=== PATIENT | female | born 1960 | race Caucasian/White ===

== ENCOUNTER 2016-08-18 06:53 | Outpatient (CLI) | payer OTHER | END 2016-08-18 06:54 | disposition home or self-care (01) | DX: E78.5 Hyperlipidemia, unspecified (principal); Z13.1 Encounter for screening for diabetes mellitus; R73.01 Impaired fasting glucose ==

== ENCOUNTER 2016-09-06 15:05 | Outpatient (CLI) | payer OTHER | END 2016-09-06 15:06 | disposition home or self-care (01) | DX: E80.6 Other disorders of bilirubin metabolism (principal) ==

== ENCOUNTER 2017-10-05 15:37 | Outpatient (CLI) | payer OTHER ==
--- NOTE | 2017-10-10 12:49 | Mammography Report ---
DIGITAL SCREENING MAMMOGRAM: 10/05/2017 CLINICAL INDICATION: A 57-year-old nulliparous the patient for screening. COMPARISON: 04/2016, 08/2014, 04/2012, 12/2010, 08/2009. TECHNIQUE: Routine CC and MLO projections as well as bilateral laterally exaggerated craniocaudal views were obtained of the breasts. FINDINGS: The breasts again demonstrate heterogeneously dense fibroglandular parenchyma bilaterally. Coarse, typically benign calcifications are present. No suspicious masses, clustered microcalcifications, or regions of architectural distortion are identified. IMPRESSION: BENIGN FINDINGS. RECOMMENDATION: Routine annual screening unless otherwise clinically indicated. BI-RADS CATEGORY 2 - BENIGN FINDINGS. STANDARD QUALIFYING STATEMENTS: 1. This examination was reviewed with the aid of Computer-Aided Detection (CAD). 2. A negative or benign imaging report should not delay biopsy if clinically suspicious findings are present. Consider surgical consultation if warranted. More than 5% of cancers are not identified by imaging. 3. Dense breasts may obscure an underlying neoplasm. TD: 10/10/2017 12:23
== END 2017-10-05 15:38 | disposition home or self-care (01) ==
LOC: DI 15:37
PROVIDERS: ATTEND Physician Assistant
DX: Z12.31 Encounter for screening mammogram for malignant neoplasm of breast (principal)
CPT/HCPCS: 77067

== ENCOUNTER 2017-11-21 15:50 | Outpatient (CLI) | payer OTHER ==
--- NOTE | 2017-11-22 11:05 | XRAY Report ---
Procedure Date: 11/21/2017 Accession Number: [id number] / [id number] Procedure: XR - Cervical Spine 2 View CPT Code: FULL RESULT: EXAM: Cervical Spine 2 View DATE: 11/21/2017 4:17 PM CLINICAL HISTORY: SCOLIOSIS COMPARISON: None. TECHNIQUE: 3 views. FINDINGS: Alignment: Normal. No spondylolisthesis or scoliosis. Bones: The cervical vertebral bodies and posterior elements are well visualized from the skull base through C7-T1. No fractures or bone lesions. Disks: Moderate degenerative disc disease, with disc space narrowing worst at C5-6. Facets: Moderate facet arthropathy. Soft Tissues: Normal. No prevertebral soft tissue swelling. The visualized lung apices are clear. IMPRESSION: Moderate degenerative changes. No evidence of acute fracture. RADIA
--- NOTE | 2017-11-22 11:16 | XRAY Report ---
Procedure Date: 11/21/2017 Accession Number: [id number] / [id number] Procedure: XR - Thoracic Spine 2 View CPT Code: FULL RESULT: EXAM: Thoracic Spine 2 View DATE: 11/21/2017 4:17 PM CLINICAL HISTORY: PAIN,DORSALGIA, UNSPECIFIED,OTH SYMPTOMS AND SIGNS COMPARISON: None. TECHNIQUE: 2 views. FINDINGS: Alignment: Dextroscoliosis of the lower thoracic spine, measuring 30 degrees between the pedicles of T11 and T7. Bones: No fractures or bone lesions. Disks: Degenerative disc disease, increased. Soft Tissues: Normal. The visualized lungs and cardiomediastinal silhouette are normal. IMPRESSION: Progression of degenerative disc disease and scoliosis. RADIA
--- NOTE | 2017-11-22 11:18 | XRAY Report ---
Procedure Date: 11/21/2017 Accession Number: [id number] / [id number] Procedure: XR - Lumbar Spine 2 View CPT Code: FULL RESULT: EXAM: Lumbar Spine 2 View DATE: 11/21/2017 4:17 PM CLINICAL HISTORY: PAIN,DORSALGIA, UNSPECIFIED,OTH SYMPTOMS AND SIGNS COMPARISON: 05/21/2007 TECHNIQUE: 2 views. FINDINGS: Alignment: Levoscoliosis, measuring 64 degrees between the pedicles of T11 and L3. Increased lateral subluxation of L3 on L4. Bones: Five hnp-hna-ldmarih lumbar vertebral bodies are present. No fractures or bone lesions. Disks: Progression of degenerative disc disease. Facets: Moderate facet arthropathy. Sacroiliac Joints: Unremarkable. Soft Tissues: Normal. The visualized bowel gas pattern is normal. IMPRESSION: Progression of scoliosis and degenerative changes. RADIA
== END 2017-11-21 15:51 | disposition home or self-care (01) ==
LOC: DI 15:50
PROVIDERS: ATTEND Physician Assistant
DX: M50.322 Other cervical disc degeneration at C5-C6 level (principal); M47.892 Other spondylosis, cervical region; M51.34 Other intervertebral disc degeneration, thoracic region; M41.84 Other forms of scoliosis, thoracic region; M51.36 Other intervertebral disc degeneration, lumbar region; M47.896 Other spondylosis, lumbar region; M43.16 Spondylolisthesis, lumbar region
CPT/HCPCS: 72040; 72070; 72100

== ENCOUNTER 2019-11-28 08:45 | Outpatient (CLI) | payer BC ==
--- NOTE | 2019-12-02 13:25 | Mammography Report ---
BILATERAL DIGITAL SCREENING MAMMOGRAM 3D/2D: 11/28/2019 CLINICAL: Routine screening. Comparison is made to exams dated: 10/05/2017 mammogram, 05/26/2016 mammogram, and 09/05/2014 mammogra m - [facility]. The tissue of both breasts is heterogeneously dense. This may lowe r the sensitivity of mammography. No significant masses, calcifications, or other findings are seen in either breast. There has been no significant interval change. IMPRESSION: NEGATIVE There is no mammographic evidence of malignancy. A 1 year screening mammogram is recommended. This exam was interpreted at Station ID: [id number]. NOTE: For mammograms, a report in lay terms will be sent to the patient. Approximately 15% of breast malignancies will not be visualized mammographically. In the management of a palpable breast mass, a negative mammogram must not discourage biopsy of a clinically suspicious lesion. Electronically Signed By: Migel Joseph M.D. slc/penrad:11/28/2019 18:20:17 ACR BI-RADS Category 1: Negative 3341F PARENCHYMAL PATTERN: (D) - The breast(s) demonstrate(s) heterogeneously dense fibroglandular leidy marie. BI-RADS CATEGORY: (1) - 1 RECOMMENDATION: (ANNUAL) - Recommend routine annual screening mammography. [id number] 1 year screening LATERALITY: (B)
== END 2019-11-28 08:46 | disposition home or self-care (01) ==
LOC: DI 08:45
DX: Z12.31 Encounter for screening mammogram for malignant neoplasm of breast (principal)
CPT/HCPCS: 77063; 77067

== ENCOUNTER 2020-04-30 07:55 | Outpatient (CLI) | payer BC ==
[2020-04-30 08:21] LABS: BASOPHILS # (AUTO) 0.1 10^3/uL (0.0-0.1); BASOPHILS % (AUTO) 0.9 %; EOSINOPHILS # (AUTO) 0.1 10^3/uL (0.0-0.7); EOSINOPHILS % (AUTO) 2.4 %; LYMPHOCYTES # (AUTO) 1.8 10^3/uL (1.5-3.5); LYMPHOCYTES % (AUTO) 33.6 %; MEAN CORPUSCULAR HEMOGLOBIN 31.9 pg (27.0-31.0); MEAN CORPUSCULAR HGB CONC 33.3 g/dL (32.0-36.0); MEAN CORPUSCULAR VOLUME 95.9 fL (81.0-99.0); MEAN PLATELET VOLUME 9.7 fL (7.9-10.8); MONOCYTES # (AUTO) 0.4 10^3/uL (0.0-1.0); MONOCYTES % (AUTO) 7.3 %; NEUTROPHILS % (AUTO) 55.4 %; PLT - PLATELET COUNT 283 10^3/uL (130-450); RED BLOOD COUNT 4.39 10^6/uL (4.20-5.40); RED CELL DISTRIBUTION WIDTH 12.9 % (12.0-15.0); WHITE BLOOD COUNT 5.3 x10^3/uL (4.8-10.8)
[2020-04-30 08:41] LABS: ALBUMIN 4.1 g/dL (3.2-5.5); ALBUMIN/GLOBULIN RATIO 1.4 (1.0-2.2); ALKALINE PHOSPHATASE 91 IU/L (42-121); ALT ALANINE AMINOTRANSFERASE 19 IU/L (10-60); AST ASPARTATE AMINOTRANSFERASE 19 IU/L (10-42); BILIRUBIN,TOTAL 1.5 mg/dL (0.2-1.0); BUN - BLOOD UREA NITROGEN 16 mg/dL (6-20); CALCIUM 9.3 mg/dL (8.5-10.3); CARBON DIOXIDE - CO2 28 mmol/L (21-32); CHLORIDE 102 mmol/L (101-111); CHOL/HDL RATIO 3.8 (<4.4); CHOLESTEROL 233 mg/dL; CREATININE 0.8 mg/dL (0.4-1.0); GLUCOSE 120 mg/dL (70-100); HDL CHOLESTEROL 61 mg/dL; LDL CHOLESTEROL,CALCULATED 152 mg/dL; LDL/HDL RATIO 2.5 (<4.4); SODIUM 140 mmol/L (135-145); VLDL CHOLESTEROL 20 mg/dL
[2020-04-30 09:44] LABS: HEMOGLOBIN A1c% 6.1 % (4.27-6.07)
[2020-05-01 12:25] LABS: HEPATITIS C ANTIBODY NON-REACTIVE (NON-REACTIVE)
== END 2020-04-30 07:56 | disposition home or self-care (01) ==
LOC: LAB 07:55
PROVIDERS: ATTEND Nurse Practitioner Family
DX: E78.5 Hyperlipidemia, unspecified (principal); R73.01 Impaired fasting glucose; Z11.59 Encounter for screening for other viral diseases; Z12.4 Encounter for screening for malignant neoplasm of cervix
CPT/HCPCS: 36415; 80053; 80061; 83036; 83721; 85025; 86803

== ENCOUNTER 2020-12-27 14:58 | Emergency (ER) | payer BC ==
--- NOTE | 2020-12-27 15:23 | ED Physician Documentation ---
PD HPI Fall - Stated complaint Stated Complaint: L NECK/ARM PX - History obtained from History obtained from: Patient, Family - Additional information Additional information: She came out of a hammock wrong and bent her neck backwards. This was about an hour ago. Subsequently had what sounds like a vagal reaction, became very pale and hypotensive to about 80/50 with normal pulse. Pain is in the mid and upper neck and has some tingling in the left arm that is improving with time. No other injuries. 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 - Present Medications Home Medications: Ambulatory Orders Medication Instructions Recorded Confirmed HYDROcod/ACETAM 5/325 [Index 5/325] 1 - 2 tab PO Q6H PRN #15 tablet 12/27/20 - Allergies Allergies/Adverse Reactions: Allergies Allergy/AdvReac Type Severity Reaction Status Date / Time No Known Drug Allergies Allergy Verified 12/27/20 15:30 PD ED PE NORMAL - Vitals Vital signs reviewed: Yes - General General: Alert and oriented X 3, No acute distress - Neck Neck: Other (Midline spinal tenderness to the mid and upper neck, equal upper extremity strength and sensation throughout.) - Neuro Neuro: Alert and oriented X 3, Normal speech Results - Vitals Vitals: Vital Signs - 24 hr 12/27/20 12/27/20 15:00 15:46 Temperature 36.6 C Heart Rate 88 77 Respiratory 16 16 Rate Blood Pressure 126/65 112/60 O2 Saturation 99 98 Oxygen O2 Source Room air - Rads (name of study) Cervical spine CT shows no evidence of acute trauma Radiology: EMP read contemporaneously Departure - Departure Disposition: 01 Home, Self Care Clinical Impression: Neck strain Qualifiers: Encounter type: initial encounter Qualified Code(s): S16.1XXA - Strain of muscle, fascia and tendon at neck level, initial encounter Condition: Good Record reviewed to determine appropriate education?: Yes Instructions: ED Sprain Strain Neck Prescriptions: HYDROcod/ACETAM 5/325 [Index 5/325] 1 - 2 tab PO Q6H PRN #15 tablet PRN Reason: Pain Forms: Activity restrictions Discharge Date/Time: 12/27/20 16:40
[2020-12-27] MEDS ORDERED: HYDROcod/ACETAM 5/325 MG TABLET ONE (15:28)
[2020-12-27 15:48] VITALS: BP 112/60
[2020-12-27] MEDS ORDERED: HYDROcod/ACET 5/325 Prepack 4 PO STA (16:15)
[2020-12-27] MEDS ORDERED: HYDROcod/ACET 5/325 Prepack 4 PO ONE (16:26)
--- NOTE | 2020-12-28 14:51 | CT Report ---
PROCEDURE: CERVICAL SPINE CT W/O CONTRAST INDICATIONS: Neck injury TECHNIQUE: Noncontrast 3 mm thick sections acquired from the skull base to the T4 level. Sagittal and coronal r eformats were then constructed. For radiation dose reduction, the following was used: automated exp osure control, adjustment of mA and/or kV according to patient size. COMPARISON: Cervical spine radiographs 11/21/2017. FINDINGS: Image quality: Excellent. Bones: No acute fractures or dislocations. Visualized superior ribs are intact. Multilevel disc sp nicole narrowing and degenerative endplate changes are seen. There is also multilevel facet and uncovert ebral joint hypertrophy. No high-grade narrowing of the bony spinal canal is seen. Soft tissues: Prevertebral soft tissues are normal in thickness. No paravertebral hematomas. No ap ical pneumothoraces. Nonspecific 8 mm right thyroid nodule. No dedicated imaging follow-up is recomm ended based on ACR white paper guidelines. IMPRESSION: No acute cervical spine fracture or subluxation. Multilevel spondylosis. Reviewed by: Wood Yanes MD on 12/27/2020 7:20 PM PDT Approved by: Wood Yanes MD on 12/27/2020 7:20 PM PDT Station ID: [id number]
== END 2020-12-27 16:40 | disposition home or self-care (01) ==
LOC: ED 14:58
DX: S16.1XXA Strain of muscle, fascia and tendon at neck level, initial encounter (principal); X50.1XXA Overexertion from prolonged static or awkward postures, initial encounter; Y93.89 Activity, other specified; M47.812 Spondylosis without myelopathy or radiculopathy, cervical region
CPT/HCPCS: 72125; 99283; 99284; A9270

== ENCOUNTER 2021-06-18 10:23 | Outpatient (CLI) | payer BC ==
[2021-06-18 10:49] LABS: BASOPHILS % (AUTO) 0.7 %; EOSINOPHILS # (AUTO) 0.1 10^3/uL (0.0-0.7); EOSINOPHILS % (AUTO) 2.5 %; HCT - HEMATOCRIT 41.3 % (37.0-47.0); LYMPHOCYTES # (AUTO) 1.7 10^3/uL (1.5-3.5); LYMPHOCYTES % (AUTO) 30.2 %; MEAN CORPUSCULAR HGB CONC 33.9 g/dL (32.0-36.0); MEAN CORPUSCULAR VOLUME 94.3 fL (81.0-99.0); MEAN PLATELET VOLUME 9.5 fL (7.9-10.8); MONOCYTES # (AUTO) 0.4 10^3/uL (0.0-1.0); MONOCYTES % (AUTO) 6.3 %; NEUTROPHILS # (AUTO) 3.3 10^3/uL (1.5-6.6); NEUTROPHILS % (AUTO) 59.9 %; PLT - PLATELET COUNT 284 10^3/uL (130-450); RED BLOOD COUNT 4.38 10^6/uL (4.20-5.40); RED CELL DISTRIBUTION WIDTH 12.5 % (12.0-15.0); WHITE BLOOD COUNT 5.5 x10^3/uL (4.8-10.8)
[2021-06-18 11:07] LABS: ALBUMIN 4.1 g/dL (3.2-5.5); ALBUMIN/GLOBULIN RATIO 1.6 (1.0-2.2); BILIRUBIN,TOTAL 1.4 mg/dL (0.2-1.0); CALCIUM 9.3 mg/dL (8.5-10.3); CREATININE 0.7 mg/dL (0.4-1.0); TOTAL PROTEIN 6.7 g/dL (6.7-8.2)
[2021-06-18 11:18] LABS: THYROID STIMULATING HORMONE 2.31 uIU/mL (0.34-5.60)
== END 2021-06-18 10:24 | disposition home or self-care (01) ==
LOC: LAB 10:23
PROVIDERS: ATTEND Nurse Practitioner Family
DX: R42 Dizziness and giddiness (principal); R00.0 Tachycardia, unspecified
CPT/HCPCS: 36415; 80053; 84443; 85025

== ENCOUNTER 2021-10-05 08:02 | Outpatient (CLI) | payer BC ==
[2021-10-05 08:33] LABS: ALBUMIN 4.1 g/dL (3.2-5.5); ALBUMIN/GLOBULIN RATIO 1.5 (1.0-2.2); ALKALINE PHOSPHATASE 102 IU/L (42-121); ALT ALANINE AMINOTRANSFERASE 22 IU/L (10-60); AST ASPARTATE AMINOTRANSFERASE 20 IU/L (10-42); BILIRUBIN,TOTAL 1.4 mg/dL (0.2-1.0); BUN - BLOOD UREA NITROGEN 16 mg/dL (6-20); CARBON DIOXIDE - CO2 28 mmol/L (21-32); CHLORIDE 102 mmol/L (101-111); CHOL/HDL RATIO 3.8 (<4.4); CHOLESTEROL 218 mg/dL; CREATININE 0.8 mg/dL (0.4-1.0); GFR - MDRD 72 (>89); GLUCOSE 119 mg/dL (70-100); HDL CHOLESTEROL 57 mg/dL; LDL CHOLESTEROL,CALCULATED 145 mg/dL; LDL/HDL RATIO 2.5 (<4.4); POTASSIUM 4.1 mmol/L (3.5-5.0); SODIUM 138 mmol/L (135-145); TOTAL PROTEIN 6.8 g/dL (6.7-8.2); TRIGLYCERIDES 80 mg/dL; VLDL CHOLESTEROL 16 mg/dL
[2021-10-05 11:50] LABS: ESTIMATED AVERAGE GLUCOSE 131 mg/dL (70-100); HEMOGLOBIN A1c% 6.2 % (4.27-6.07)
== END 2021-10-05 08:03 | disposition home or self-care (01) ==
LOC: LAB 08:02
PROVIDERS: ATTEND Nurse Practitioner Family
DX: E78.5 Hyperlipidemia, unspecified (principal); R73.01 Impaired fasting glucose
CPT/HCPCS: 36415; 80053; 80061; 83036; 83721

== ENCOUNTER 2021-11-10 07:47 | Outpatient (CLI) | payer BC ==
--- NOTE | 2021-11-11 07:57 | Mammography Report ---
BILATERAL DIGITAL SCREENING MAMMOGRAM 3D/2D WITH EXAGGERATED CC: 11/10/2021 CLINICAL: Routine screening. Family history of breast cancer. Comparison is made to exams dated: 11/28/2019 mammogram, 10/05/2017 mammogram, 05/26/2016 mammogram, an d 09/05/2014 mammogram - [facility]. The tissue of both breasts is heterogeneously dense. This may lower the sensitivity of mammography. No significant masses, calcifications, or other findings are seen in either breast. There has been no significant interval change. IMPRESSION: NEGATIVE There is no mammographic evidence of malignancy. A 1 year screening mammogram is recommended. This exam was interpreted at Station ID: [id number]. NOTE: For mammograms, a report in lay terms will be sent to the patient. Approximately 15% of breast malignancies will not be visualized mammographically. In the management of a palpable breast mass, a negative mammogram must not discourage biopsy of a clinically suspicious lesion. Electronically Signed By: Doni Hull M.D., jr/tania:11/10/2021 11:58:35 ACR BI-RADS Category 1: Negative 3341F PARENCHYMAL PATTERN: (D) - The breast(s) demonstrate(s) heterogeneously dense fibroglandular leidy marie. BI-RADS CATEGORY: (1) - 1 RECOMMENDATION: (ANNUAL) - Recommend routine annual screening mammography. [id number] 1 year screening LATERALITY: (B)
== END 2021-11-10 07:48 | disposition home or self-care (01) ==
LOC: DI.S 07:47
PROVIDERS: ATTEND Nurse Practitioner Family
DX: Z12.31 Encounter for screening mammogram for malignant neoplasm of breast (principal); Z80.3 Family history of malignant neoplasm of breast

== ENCOUNTER 2023-12-11 09:45 | Outpatient (CLI) | payer BC, MEDICARE ==
--- NOTE | 2023-12-12 09:12 | Mammography Report ---
BILATERAL DIGITAL SCREENING MAMMOGRAM 3D/2D: 12/11/2023 CLINICAL: Routine screening. Family history of breast cancer. Comparison is made to exams dated: 11/10/2021 mammogram, 11/28/2019 mammogram, 05/26/2016 mammogram, an d 10/05/2017 mammogram - [facility]. Both breasts are heterogeneously dense, which may obscure small masses (category c / 51-75% glandular tissue). No significant masses, calcifications, or other findings are seen in either breast. There has been no significant interval change. IMPRESSION: NEGATIVE There is no mammographic evidence of malignancy. A 1 year screening mammogram is recommended. Based on the Tyrer Cuzick model (a risk assessment model) the patient's lifetime risk is 9.9% and her 10 year risk is 4.8%. According to the ACR, ACS, and NCCN guidelines, an annual breast MRI exam daja g with mammogram is recommended if the patient's lifetime risk is 20% or greater. This exam was interpreted at Station ID: [id number]. NOTE: For mammograms, a report in lay terms will be sent to the patient. Approximately 15% of breast malignancies will not be visualized mammographically. In the management of a palpable breast mass, a negative mammogram must not discourage biopsy of a clinically suspicious lesion. Electronically Signed By: Jacob osorio/tania:12/11/2023 10:41:25 letter sent: No_Letter ACR BI-RADS Category 1: Negative 3341F PARENCHYMAL PATTERN: (D) - The breast(s) demonstrate(s) heterogeneously dense fibroglandular leidy marie. BI-RADS CATEGORY: (1) - 1 RECOMMENDATION: (ANNUAL) - Recommend routine annual screening mammography. [id number] 1 year screening LATERALITY: (B)
== END 2023-12-11 09:46 | disposition home or self-care (01) ==
LOC: DI.S 09:45
PROVIDERS: ATTEND Nurse Practitioner Family
DX: Z12.31 Encounter for screening mammogram for malignant neoplasm of breast (principal); Z80.3 Family history of malignant neoplasm of breast; R92.333 Mammographic heterogeneous density, bilateral breasts

== ENCOUNTER 2023-12-11 09:47 | Outpatient (CLI) | payer BC, MEDICARE ==
--- NOTE | 2023-12-11 19:09 | XRAY Report ---
PROCEDURE: Cervical Spine 2-3V INDICATIONS: CERVICALGIA TECHNIQUE: 3 view(s) of the cervical spine were acquired. COMPARISON: 11/21/2017. FINDINGS: Bones: No fractures or dislocations to the T1 level. The lateral masses of C1 appear intact on the odontoid view. Cervical spondylitic change is similar with multilevel disc height loss and uncoverte bral joint osteophytes and facet arthropathy. No suspicious bony lesions. Soft tissues: No prevertebral soft tissue swelling. IMPRESSION: Cervical spondylosis. Reviewed by: Oniel Oliveira MD on 12/11/2023 7:08 PM PDT Approved by: Oniel Oliveira MD on 12/11/2023 7:08 PM PDT Station ID: [id number]
--- NOTE | 2023-12-11 20:36 | XRAY Report ---
PROCEDURE: Shoulder 2+V RT INDICATIONS: RT SHOULDER PAIN TECHNIQUE: 3 views of the shoulder were acquired. COMPARISON: None. FINDINGS: Bones: No acute fractures or dislocations. No suspicious bony lesions. Visualized ribs appear inta ct. Mild to moderate acromioclavicular joint degenerative. Mild downsloping of the lateral acromion . Soft tissues: No suspicious soft tissue calcifications. The visualized lungs are within normal limi ts. IMPRESSION: Mild to moderate acromioclavicular joint osteoarthrosis. No acute osseous abnormality. Reviewed by: Wood Yanes MD on 12/11/2023 8:35 PM PDT Approved by: Wood Yanes MD on 12/11/2023 8:35 PM PDT Station ID: [id number]
--- NOTE | 2023-12-11 20:38 | XRAY Report ---
PROCEDURE: Knee 3V BL INDICATIONS: BILATERAL KNEE PAIN TECHNIQUE: 3 views each of the right and left knees were acquired. COMPARISON: None. FINDINGS: Bones: No acute fractures or dislocations. No suspicious bony lesions. Mild tricompartmental join t space narrowing. Soft tissues: Trace knee effusions. No suspicious soft tissue calcifications. IMPRESSION: Mild bilateral osteoarthrosis. Reviewed by: Wood Yanes MD on 12/11/2023 8:37 PM PDT Approved by: Wood Yanes MD on 12/11/2023 8:37 PM PDT Station ID: [id number]
== END 2023-12-11 09:48 | disposition home or self-care (01) ==
LOC: DI.S 09:47
PROVIDERS: ATTEND Nurse Practitioner Family
DX: M17.0 Bilateral primary osteoarthritis of knee (principal); M19.011 Primary osteoarthritis, right shoulder; M47.812 Spondylosis without myelopathy or radiculopathy, cervical region

== ENCOUNTER 2024-01-30 08:03 | Outpatient (CLI) | payer BC, MEDICARE ==
--- NOTE | 2024-01-31 13:12 | DEXA Report ---
PROCEDURE: Dexa Spine and/or Hip INDICATIONS: POST MENOPAUSAL TECHNIQUE: Dual energy x-ray absorptiometry (DEXA) was performed in the regions detailed below. COMPARISON: None. FINDINGS: Lumbar Spine: Bone Mineral Density 1.275 g/cm/cm,T score 0.8. Normal Left Femoral Neck: Bone Mineral Density 1.012 g/cm/cm, T score -0.2. Normal Left Total Hip: Bone Mineral Density 0.960 g/cm/cm,T score -0.4. Normal Left Forearm: Bone Mineral Density 0.619 g/cm/cm, T score -0.9. Normal (T score greater or equal to -1.0: NORMAL) (T score from -1.1 to -2.4: OSTEOPENIA) (T score less than or equal to -2.5 to: OSTEOPOROSIS) IMPRESSION: Normal bone mineralization Patients with diagnosis of osteoporosis or osteopenia should have regular bone mineral density assess ment. For those eligible for Medicare, routine testing is allowed once every 2 years. Testing frequ ency can be increased for patients who have rapidly progressing disease or for those who are receivin g medical therapy to restore bone mass. Reviewed by: Geoffrey Sharpe MD on 01/31/2024 12:11 PM CHUCKY Approved by: Geoffrey Sharpe MD on 01/31/2024 12:11 PM CHUCKY Station ID: [id number]
== END 2024-01-30 08:04 | disposition home or self-care (01) ==
LOC: DI 08:03
PROVIDERS: ATTEND Nurse Practitioner Family
DX: Z78.0 Asymptomatic menopausal state (principal)